=== PATIENT | male | born 2000 | race Hispanic/Latino ===

== ENCOUNTER 2024-10-10 08:10 | Day surgery (SDC) | payer OTHER ==
[~2024-10-10] VITALS: Ht 162.6 cm; Wt 75.0 kg
[~2024-10-10 08:10] MED LIST: CEFAZOLIN SODIUM 2 GM/20 ML SYR IV SCH; IBLOOD GLUCOSE TEST STRIP 1 EA TEST VI PRN; KETOROLAC TROMETHAMINE 30 MG/ML VIAL ONE; LACTATED RINGER'S 1,000 ML IV SCH; LIDOCAINE HCL 1% 5 ML SDV INJ ONE
[2024-10-10 08:29] VITALS: BP 123/83
[2024-10-10] MEDS ORDERED: ACETAMINOPHEN 1,000 MG/100 ML VIAL ONE (09:49)
[2024-10-10] MEDS ORDERED: KETAMINE in NS 50 MG/5 ML SYR ONE (09:49)
[2024-10-10] MEDS ORDERED: propofoL 200 MG/20 ML VIAL ONE (09:49)
[2024-10-10] MEDS ORDERED: fentaNYL citrate 100 MCG/2 ML VIAL ONE (09:49)
[2024-10-10] MEDS ORDERED: KETOROLAC TROMETHAMINE 30 MG/ML VIAL ONE (09:49)
[2024-10-10] MEDS ORDERED: ondansetron HCL 4 MG/2 ML VIAL ONE (09:49)
[2024-10-10] MEDS ORDERED: LIDOCAINE HCL 2% 5 ML SDV ONE (09:49)
[2024-10-10] MEDS ORDERED: DEXAMETHASONE SOD PHOS 4 MG/ML VIAL ONE (09:49)
[2024-10-10] MEDS ORDERED: droPERidol 5 MG/2 ML VIAL IV PRN (10:00)
[2024-10-10] MEDS ORDERED: ondansetron HCL 4 MG/2 ML VIAL IV PRN (10:00)
[2024-10-10] MEDS ORDERED: fentaNYL citrate 50 MCG/ML SDV IV PRN (10:00)
[2024-10-10] MEDS ORDERED: HYDROCODONE/ACETA 5/325 TAB PO PRN (10:00)
[2024-10-10] MEDS ORDERED: NALOXONE HCL 0.4 MG SYR IV PRN (10:00)
[2024-10-10] MEDS ORDERED: HYDROmorphone HCL 1 MG/ML SYR IV PRN (10:00)
[2024-10-10] MEDS ORDERED: IBLOOD GLUCOSE TEST STRIP 1 EA TEST VI PRN (10:00)
[2024-10-10] MEDS ORDERED: DICLOFENAC SODI75 MG PO (10:30)
[2024-10-10] MEDS ORDERED: HYDROCODON-ACE1 EA10 PO (10:30)
[2024-10-10 11:22] VITALS: BP 114/71
--- NOTE | 2024-10-10 11:35 | NUR ---
1120 PT ARRIVED TO DAY SURGERY FROM PACU VIA STREACHER. PT BREATHING EQUAL AND UNLABORED. VITALS TAKEN. IV ASSESSED. PT GIRLFRIEND IN ROOM AT BEDSIDE. REPORT TAKEN FROM BETH Mills RN. PT REPORTS 3/10 TOLERABLE PAIN, PT REPORTS NO NAUSEA. PT DRESSING CLEAN DRY AND INTACT. PT SITTING UPRIGHT, PT HAS WATER AND SNACKS AT BEDSIDE. PT BED LOW AND LOCKED, CALL LIGHT WITHIN REACH. 1130 REPORT GIVEN TO KEVIN Hernández RN. CARE TRANSFERRED AT THIS TIME.
[2024-10-10 12:10] VITALS: BP 114/77
--- NOTE | 2024-10-10 12:16 | NUR ---
1200- DC INSTRUCTIONS GONE OVER AND EDUCATION GIVEN. ALL QUESTIONS AND CONCERNS ANSWERED WITH PT GIRLFRIEND AT THE BEDSIDE. PT REQUESTS SOMETHING FOR PAIN. 1215- PT RESTING IN THE STRETCHER. PT REPORTS 7/10 PAIN AND NO NAUSEA. PAIN MEDICATION GIVEN, SEE EMAR. VITAL SIGNS OBTAINED. IV INFUSING LR. PT DENIES QUESTIONS AND CONCERNS AT THIS TIME. WATER REFILLED. SURGICAL SITE IS CLEAN, DRY AND INTACT. DC REQUIRMENTS DISCUSSED AND PT IS UNDERSTANDING. BED IS LOCKED IN THE LOWEST POSITON AND CALL LIGHT IN REACH.
[2024-10-10 13:27] VITALS: BP 113/73
--- NOTE | 2024-10-10 13:41 | NUR ---
10/10/24 1341 Juanita,Xena 1036 PT ARRIVED TO PACU WITH SNORING OFF AND ON. PT HEAD TURNED TO SIDE AND SNORING CONTINUES. VSS. PT REACTIVE TO PAINFUL STIMULI. 1040 CHIN LIFT USED OFF AND ON. DEEP BREATHING ENCOURAGED OFF AND ON. 1044 PT SLIGHTLY MORE AWAKE AND LOOKING AROUND ROOM, O2 MASK REMOVED AND PT REORIENTED TO PACU. PT REPORTS SMALL AMOUNT OF PAIN 3/10 IN RIGHT KNEE. ICE IN PLACE. 1100 PT RESTING AND VSS. 1120 PT RETURNED TO DS AND SIGNIFICANT OTHER AT BEDSIDE. ALL QUESTIONS ANSWERED AND EDUCATION GIVEN ABOUT GETTING A SLEEP STUDY. BOTH VERBALIZED UNDERSTANDING.
--- NOTE | 2024-10-10 13:58 | NUR ---
LE- CENSUS 1235- PT REPORTS HAVING TO USE THE RESTROOM. PT IS ABLE TO AMBULATE TO THE RESTROOM. PT VOIDS 550 ML OF CLEAR, YELLOW URINE. PT IS ABLE TO AMBULATE BACK TO ROOM. PT GETTING DRESSED WITH HELP OF GIRLFRIEND AT BEDSIDE. 1245- IV REMOVED. PT BELONGINGS ARE WITH GIRLFRIEND. PT IS ABLE TO AMBULATE TO WHEELCHAIR INDEPENDENTLY. PT DC FROM DAY SURGERY AT THIS TIME AND IS ABLE TO GET INTO VEHICLE WITH NO ISSUES. PT DENIES QUESTIONS AND CONCERNS.
[2024-10-10] MEDS ORDERED: SEVOFLURANE 250 ML BTL INH ONE (15:29)
[2024-10-10] MEDS ORDERED: DICLOFENAC SOD 75 MG TABEC PO SCH (21:00)
--- NOTE | 2024-10-13 07:13 | OR ---
[facility] [address], [place] [address] Signed DATE OF OPERATION: 10/10/2024 SURGEON: Shanice Mckay MD PREOPERATIVE DIAGNOSIS: Lateral meniscus tear, right knee. POSTOPERATIVE DIAGNOSIS: Lateral meniscus tear, right knee. PROCEDURE PERFORMED: Right knee arthroscopy with partial lateral meniscectomy. FLOOR SANDER: None. ANESTHESIA: General. BLOOD LOSS: Minimal. BRIEF HISTORY: Daniel is a 24-year-old gentleman who injured his knee. He had pain and locking in the knee and MRI was consistent with a large posterior lateral meniscus tear. Risks and benefits of operative treatment were discussed with him. He elected to proceed. Once consent was obtained, he was taken to the operating room. After adequate anesthesia he was placed on operating room table. The left leg was flexed, abducted and externally rotated on a well-padded leg loredo. The right was placed in well-padded leg loredo with no tourniquet. The leg was then prepped and draped in a standard sterile fashion. The portal sites were then injected with 0.25% Marcaine with epinephrine. Standard inferolateral and superolateral portals were made with care taken to protect his tattoos. The scope was introduced in the knee. ARTHROSCOPIC FINDINGS: Moderate synovitis was noted throughout the knee. The patella was noted to track well with no chondromalacia. The medial compartment was intact. ACL and PCL were intact. The ACL was noted to take tension on appropriate drawer test. The lateral compartment showed no chondromalacia, but there was a large complex tear at the posterior lateral corner extending about a cm and half anteriorly and medially. Electronically Signed By: SHANICE MCKAY MD 10/13/24 0713 PATIENT NAME: DANIEL VILCHIS OPERATIVE REPORT DATE OF : [birth year] REPORT #: [id number] PHYSICIAN: SHANICE MKCAY MD PCP: NO PRIMARY CARE PHYSICIAN REPORT IS CONFIDENTIAL AND NOT TO BE RELEASED WITHOUT AUTHORIZATION [facility] [address], [place] [address] Signed DESCRIPTION OF OPERATION: Standard inferior medial portal was established after localization using a spinal needle. Straight and curved biters were used to trim the meniscus tear back to stable rim. This was then smoothed using shaver and all debris was evacuated. Careful evaluation and visualization was undertaken to ensure complete removal of the tear. The scope was then withdrawn and all portals were closed with 3-0 nylon. The knee was injected with 60 mg Toradol at the end of the case. The wounds were dressed with Adaptic, ABD and Saleem wrap. He tolerated the procedure well. All sponge, needle, and instrument counts were correct. Shanice Mckay MD BA/CHANDRIKAL /[id number] Copies: ~ Electronically Signed By: SHANICE MCKAY MD 10/13/24 0713 PATIENT NAME: DANIEL VILCHIS OPERATIVE REPORT DATE OF : [birth year] REPORT #: [id number] PHYSICIAN: SHANICE MCKAY MD PCP: NO PRIMARY CARE PHYSICIAN REPORT IS CONFIDENTIAL AND NOT TO BE RELEASED WITHOUT AUTHORIZATION
== END 2024-10-10 12:45 | disposition home or self-care (01) ==
LOC: DS 08:10
PROVIDERS: ATTEND Specialist
PROC: 0SBC4ZZ Excision of Right Knee Joint, Percutaneous Endoscopic Approach (ICD-10-PCS; principal; 2024-10-10 11:00)
DX: S83.271A Complex tear of lateral meniscus, current injury, right knee, initial encounter (principal); X58.XXXA Exposure to other specified factors, initial encounter
CPT/HCPCS: 01400; J0131; J0690; J1100; J1885; J2003; J2405; J2704; J3010; J3490; J7121